=== PATIENT | female | born 1980 | race African-American/Black ===

== ENCOUNTER 2017-03-09 09:17 | Emergency (ER) | payer OTHER ==
--- NOTE | 2017-03-09 09:22 | PDOC ---
Attending Attestation - Resident Resident Name: Philip Edwards - HPI HPI: 03/09/17 10:59 Pt presents to the ED complaining of the acute onset of L shoulder pain after pulling on an exercise band that broke. Denies other inuries. - Physicial Exam PE: 03/09/17 11:01 Arm held in adduction and internal rotation. No deformity. Tenderness over the head of the biceps, deltoid and trapezius muscles. Intact sensation over deltoid. - Medical Decision Making 03/09/17 11:03 Pt presents to the ED complaining of the acute onset of shoulder pain. Exam and xray consistent with anterior dislocation. Will attempt reduction with aquino technique. If unsuccessful, will reduce under conscious sedation with propofol.
[2017-03-09 09:32] VITALS: TEMP 98.7; BMI 33.4
[2017-03-09] MEDS ORDERED: KETOROLAC TROMETHAMINE 60 MG/2 ML VIAL IM ONE (09:33)
[2017-03-09] MEDS ORDERED: KETOROLAC TROMETHAMINE 60 MG/2 ML VIAL ONE (09:44)
--- NOTE | 2017-03-09 10:27 | PDOC ---
History of Present Illness - General Chief Complaint: Pain, Acute Stated Complaint: SHOULDER PAIN Time Seen by Provider: 03/09/17 09:21 - History of Present Illness Initial Comments: 03/09/17 10:21 37 yo with no significant pmh who presents with left shoulder pain. Pt. reports 1 hour ago at the gym she was laying in supine position with resistance band wrapped around left foot and pulling left back when she felt/heard popping sensation/sound at left shoulder. Immediately she experienced sharp debilitating pain at deltoid with immobilization of the left arm. She denies numbness/tingling, weakness, temperature change, burning, of involved extremity. Denies pain control. Denies prior h/o shoulder injury. Endorses codeine allergy and requests that she not receive morphine d/t sedating effects of medication. Past History - Past Medical History Allergies/Adverse Reactions: Allergies Allergy/AdvReac Type Severity Reaction Status Date / Time codeine Allergy Verified 03/09/17 09:29 Home Medications: Ambulatory Orders NK [No Known Home Medication] 03/09/17 Other medical history: denies - Psycho/Social/Smoking Cessation Hx Suicidal Ideation: No Smoking History: Never smoked Have you smoked in the past 12 months: No Information on smoking cessation initiated: No Hx Alcohol Use: No (denies) Drug/Substance Use Hx: No (denies) Review of Systems - Review of Systems Comments:: 03/09/17 10:27 GENERAL/CONSTITUTIONAL: No fever or chills. No weakness. HEAD, EYES, EARS, NOSE AND THROAT: No change in vision. No ear pain or discharge. No sore throat. CARDIOVASCULAR: No chest pain or shortness of breath RESPIRATORY: No cough, wheezing, or hemoptysis. GASTROINTESTINAL: No nausea, vomiting, diarrhea or constipation. GENITOURINARY: No dysuria, frequency, or change in urination. MUSCULOSKELETAL: No joint or muscle swelling or pain. No neck or back pain. SKIN: No rash NEUROLOGIC: No headache, vertigo, loss of consciousness, or change in strength/ sensation. ENDOCRINE: No increased thirst. No abnormal weight change HEMATOLOGIC/LYMPHATIC: No anemia, easy bleeding, or history of blood clots. ALLERGIC/IMMUNOLOGIC: No hives or skin allergy. *Physical Exam - Vital Signs Last Vital Signs Temp Pulse Resp BP Pulse Ox 98.7 F 62 18 109/57 100 03/09/17 09:24 03/09/17 09:24 03/09/17 09:24 03/09/17 09:24 03/09/17 09:24 - Physical Exam Comments: 03/09/17 10:41 GENERAL: Awake, alert, and fully oriented, in no acute distress HEAD: No signs of trauma, normocephalic, atraumatic EYES: PERRLA, EOMI, sclera anicteric, conjunctiva clear ENT: Auricles normal inspection, hearing grossly normal, nares patent, oropharynx clear without exudates. Moist mucosa NECK: Normal ROM, supple, no lymphadenopathy, JVD, or masses LUNGS: No distress, speaks full sentences, clear to auscultation bilaterally HEART: Regular rate and rhythm, normal S1 and S2, no murmurs, rubs or gallops, peripheral pulses normal and equal bilaterally. ABDOMEN: Soft, nontender, normoactive bowel sounds. No guarding, no rebound. No masses EXTREMITIES:Exam limited d/t pain. Pt. holding left arm in externally rotated adduction, in 90 degree flexion.+ TTP anteriormedial deltoid. + Bicep head/ bicep tendon TTP. Normal inspection. Absent visual bony deformities. no edema. No clubbing or cyanosis. Palpable and symmetric peripheral pulses. Absent erythema,or abrasion . over anterior deltoid. NEUROLOGICAL: Cranial nerves II through XII grossly intact. Normal speech, normal gait, no focal sensorimotor deficits SKIN: Warm, Dry, normal turgor, no rashes or lesions noted. Procedures - Joint Reduction Left Joint Reduction Site: left: Shoulder, Anterior Dislocation Pre-Procedure NV Exam: normal Conscious Sedation: Yes (Propofol 100 mcg IV Push) Reduction Attempts: 2 Amt. of medication administered: 100mcg Procedure: Other Post-Procedure NV Exam: normal Complications: No Post Joint Reduction Film: joint reduced Immobilized: Yes ED Treatment Course - RADIOLOGY Radiology Studies Ordered: Category Date Time Status SHOULDER-LEFT [RAD] Stat Radiology 03/09/17 09:34 Taken Radiograph Interpretation: 03/09/17 10:52 EXAM#: TYPE/EXAM: RESULT: [id number] RAD/SHOULDER-LEFT Left shoulder: Pain. Injury. Imaging reveals an anterior dislocation but no sign of a gross fracture. After relocation, follow- up imaging is needed to exclude a subtle fracture. Impression: Anterior dislocation left humeral head. Reported By: Jesus Horn MD 03/09/17 1027 Philip Edwards 03/09/17 13:11 EXAM#: TYPE/EXAM: RESULT: RAD/SHOULDER-LEFT Left shoulder: Post reduction imaging following anterior dislocation Imaging reveals no sign of a gross fracture, subluxation or bone destruction. A groove is seen in the lateral aspect of the humeral head. The AC joint, upper humerus, scapula and upper ribs are intact. If symptoms persist or there is decreased range of motion, further imaging and orthopedic consultation may be of help. Impression: Satisfactory reduction of anterior dislocation of left humeral head. No sign of a gross fracture. Reported By: Jesus Horn MD 03/09/17 1308 Philip Edwards - Medications Given in the ED: ED Medications Discontinued Medications Generic Name Dose Route Start Last Admin Trade Name Freq PRN Reason Stop Dose Admin Ketorolac Tromethamine 60 mg 03/09/17 09:33 03/09/17 09:48 Toradol Injection - IM 03/09/17 09:34 60 mg ONCE ONE Administration Medical Decision Making - Medical Decision Making 03/09/17 10:47 37 yo with no significant pmh who presents with left shoulder pain. Pt. reports 1 hour ago at the gym she was laying in supine position with resistance band wrapped around left foot and pulling left back when she felt/heard popping sensation/sound at left shoulder. Immediately she experienced sharp pain at left deltoid with immobilization of the left arm. She s/s of neurovasuclar compromise. Phyiscal exam reveals + external rotation/adduction, of left arm in 90 degree flexion, and + TTP at anteriormedial deltoid/bicep head. ED course: 03/09/17 10:52 EXAM#: TYPE/EXAM: RESULT: RAD/SHOULDER-LEFT Left shoulder: Pain. Injury. Imaging reveals an anterior dislocation but no sign of a gross fracture. After relocation, follow- up imaging is needed to exclude a subtle fracture. Impression: Anterior dislocation left humeral head. Reported By: Jesus Horn MD 03/09/17 1027 Philip Edwards 03/09/17 11:53 Attempted manual reduction through Kincaid technique ( 30 minutes) 03/09/17 12:50 Propofol given and external rotation/reduction of dislocation attempted. 03/09/17 13:10 EXAM#: TYPE/EXAM: RESULT: [id number] RAD/SHOULDER-LEFT Left shoulder: Post reduction imaging following anterior dislocation Imaging reveals no sign of a gross fracture, subluxation or bone destruction. A groove is seen in the lateral aspect of the humeral head. The AC joint, upper humerus, scapula and upper ribs are intact. If symptoms persist or there is decreased range of motion, further imaging and orthopedic consultation may be of help. Impression: Satisfactory reduction of anterior dislocation of left humeral head. No sign of a gross fracture. Reported By: Jesus Horn MD 03/09/17 1308 Philip Edwards 03/09/17 13:23 Stable discharge f/u with Dr. [facility] *DC/Admit/Observation/Transfer Diagnosis at time of Disposition: Anterior dislocation of left shoulder Qualifiers: Encounter type: initial encounter Qualified Code(s): S43.015A - Anterior dislocation of left humerus, initial encounter - Discharge Dispostion Admit: No - Referrals Referrals: Mary Obrien MD [Primary Care Provider] - Obi Enciso MD [Staff Physician] - - Patient Instructions Printed Discharge Instructions: DI for Shoulder Dislocation Additional Instructions: Return immediately to the ED for severe shortness of breath, severe chest pain, passing out, other new or worsening symptoms. Take motrin over the counter for pain. Follow up with your primary care doctor. Wear the sling until following up with orthopedics. Print Language: LATVIAN - Attestations Physician Attestion: 03/09/17 13:15 I, Dr. Philip Edwards, attest that this document has been prepared under my direction and personally reviewed by me in its entirety. I further attest, that it accurately reflects all work, treatment, procedures and medical decision -making performed by me.
[2017-03-09] MEDS ORDERED: DOCUSATE SODIUM 100 MG CAPSULE (FP) PO ONE (10:53)
[2017-03-09] MEDS ORDERED: HYDROmorphone HCL CARPU-JECT 1 MG/1 ML DISP.SYRIN IVPUSH ONE (10:53)
[2017-03-09] MEDS ORDERED: HYDROmorphone HCL CARPU-JECT 1 MG/1 ML DISP.SYRIN ONE (10:57)
[2017-03-09] MEDS ORDERED: PROPOFOL 20 ML ONE (11:50)
[2017-03-09] MEDS ORDERED: PROPOFOL 200 MG/20 ML VIAL IVPUSH ONE (12:57)
[2017-03-09 13:28] VITALS: BP 117/86; PULSE 62
== END 2017-03-09 13:32 | disposition home or self-care (01) ==
LOC: JER 09:17
PROC: 0RSKXZZ Reposition Left Shoulder Joint, External Approach (ICD-10-PCS; principal; 2017-03-09)
PROC: 3E0333Z Introduction of Anti-inflammatory into Peripheral Vein, Percutaneous Approach (ICD-10-PCS; 2017-03-09)
DX: S43.015A Anterior dislocation of left humerus, initial encounter (principal); X58.XXXA Exposure to other specified factors, initial encounter; Y93.B9 Activity, other involving muscle strengthening exercises; Y92.39 Other specified sports and athletic area as the place of occurrence of the external cause
CPT/HCPCS: 73030-TC-LT; 99283-25

== ENCOUNTER → 2021-01-30 | Day surgery (SDC) | payer OTHER | END | disposition home or self-care (01) | LOC: JRADIR 05:14 | PROVIDERS: ATTEND Internal Medicine Endocrinology, Diabetes & Metabolism | PROC: 0G9K3ZX Drainage of Thyroid Gland, Percutaneous Approach, Diagnostic (ICD-10-PCS; principal; 2021-01-30) | DX: E04.1 Nontoxic single thyroid nodule (principal) | CPT/HCPCS: 10005; 76942; 88173; 88305-TC ==